=== PATIENT | male | born 1995 | race Two or more races ===

== ENCOUNTER 2020-09-03 17:36 | Inpatient (IN) | payer OTHER ==
[2020-09-03 19:10] VITALS: BMI 21.1
[2020-09-03] MEDS ORDERED: MENTHOL/PHENOL 1 EACH UD MM PRN (19:30)
[2020-09-03] MEDS ORDERED: MAGNESIUM HYDROX 2400MG/30ML ORAL SUSPENSION 30 ML CUP PO PRN (19:30)
[2020-09-03] MEDS ORDERED: MAG HYDROX/AL HYDROX/SIMETH 30 ML UNIT-DOSE CUP PO PRN (19:30)
[2020-09-03] MEDS ORDERED: MAGNESIUM CITRATE 300 ML BOTTLE PO PRN (19:30)
[2020-09-03] MEDS ORDERED: ACETAMINOPHEN 325 MG TABLET (FP) PO PRN ×2 (19:30)
[2020-09-03] MEDS ORDERED: ONDANSETRON *ODT* 4 MG TABLET SL PRN (19:30)
[2020-09-03] MEDS ORDERED: NICOTINE POLACRILEX 2 MG GUM BUC PRN (19:30)
[2020-09-03] MEDS ORDERED: METHADONE HCL 10 MG TABLET (FOR DETOX USE ONLY) PO ONE (19:32)
[2020-09-03] MEDS ORDERED: cloNIDine HCL 0.1 MG TABLET PO PRN (19:32)
[2020-09-03] MEDS: MELATONIN 5 MG TABLETS PO SCH (22:01)
[2020-09-03] MEDS: THIAMINE HCL 100 MG TABLET (FP) PO SCH (22:02)
[2020-09-04] MEDS ORDERED: METHADONE HCL 10 MG TABLET ONE (09:17)
[2020-09-04] MEDS ORDERED: METHADONE HCL 5 MG TABLET ONE (09:18)
[2020-09-04] MEDS ORDERED: METHADONE 10 MG, METHADONE 5 MG PO ONE (10:00)
[2020-09-04] MEDS ORDERED: METHADONE HCL 10 MG TABLET (FOR DETOX USE ONLY) PO ONE (10:00)
[2020-09-04] MEDS: PRENATAL VITAMINS W/ FOLIC ACID TABLET (FP) PO SCH (10:07)
[2020-09-04 11:24] LABS: HEMOGLOBIN 13.9 GM/dL (11.7-16.9); MCH 28.8 pg (25.7-33.7); MCHC 33.2 g/dl (32.0-35.9); MEAN CELL VOLUME 86.7 fl (80-96); MEAN PLT VOLUME 10.8 fl (7.5-11.1); PLATELET COUNT 197 10^3/uL (134-434); RBC 4.84 M/mm3 (4.00-5.60); RDW 14.1 % (11.9-15.9); WHITE BLOOD COUNT 5.6 K/mm3 (4.0-10.0)
[2020-09-04 11:45] LABS: BLOOD UREA NITROGEN 10.8 mg/dL (7-18)
[2020-09-04 11:49] LABS: CREATININE 0.7 mg/dL (0.55-1.3)
[2020-09-04 11:50] LABS: BILIRUBIN,TOTAL 0.2 mg/dL (0.2-1); TOT PROT 6.9 g/dl (6.4-8.2)
[2020-09-04] MEDS: MELATONIN 5 MG TABLETS PO SCH (23:04)
[2020-09-04] MEDS: THIAMINE HCL 100 MG TABLET (FP) PO SCH (23:04)
[2020-09-05] MEDS ORDERED: METHADONE HCL 10 MG TABLET (FOR DETOX USE ONLY) PO ONE (10:00)
[2020-09-05] MEDS: PRENATAL VITAMINS W/ FOLIC ACID TABLET (FP) PO SCH (10:29)
[2020-09-05] MEDS: METHOCARBAMOL 500 MG TABLET PO PRN ×2 (10:29→18:09)
[2020-09-05] MEDS: MELATONIN 5 MG TABLETS PO SCH (22:26)
[2020-09-05] MEDS: THIAMINE HCL 100 MG TABLET (FP) PO SCH (22:26)
[2020-09-06] MEDS ORDERED: METHADONE HCL 5 MG TABLET (FOR DETOX USE ONLY) PO ONE (06:00)
[2020-09-06] MEDS: PRENATAL VITAMINS W/ FOLIC ACID TABLET (FP) PO SCH (11:26)
[2020-09-06 13:19] VITALS: BP 115/67; PULSE 82; TEMP 97.5
== END 2020-09-06 13:06 | disposition other institution (70) | DRG 773 ==
LOC: YASAS 17:36 → Y3N 21:27
PROVIDERS: ADMIT Allergy & Immunology; ATTEND Allergy & Immunology
PROC: HZ2ZZZZ Detoxification Services for Substance Abuse Treatment (ICD-10-PCS; principal; 2020-09-03)
DX: F11.23 Opioid dependence with withdrawal (principal); F12.20 Cannabis dependence, uncomplicated; F17.290 Nicotine dependence, other tobacco product, uncomplicated; Z88.6 Allergy status to analgesic agent
CPT/HCPCS: 36415; 80053; 85027; 86780; C9803; U0003; U0005

== ENCOUNTER 2020-09-24 18:15 | Inpatient (IN) | payer OTHER ==
[2020-09-24 19:22] VITALS: BMI 21.9
[2020-09-24] MEDS ORDERED: IBUPROFEN 400 MG TABLET (FP) PO PRN (20:15)
[2020-09-24] MEDS ORDERED: ACETAMINOPHEN 325 MG TABLET (FP) PO PRN ×2 (20:15)
[2020-09-24] MEDS ORDERED: MENTHOL/PHENOL 1 EACH UD MM PRN (20:15)
[2020-09-24] MEDS ORDERED: BISMUTH SUBSALICYLATE 524 MG/30 ML PO PRN (20:15)
[2020-09-24] MEDS ORDERED: MAG HYDROX/AL HYDROX/SIMETH 30 ML UNIT-DOSE CUP PO PRN (20:15)
[2020-09-24] MEDS ORDERED: methaDONE HCL 10 MG TABLET (FOR DETOX USE ONLY) PO ONE (20:15)
[2020-09-24] MEDS ORDERED: cloNIDine HCL 0.1 MG TABLET PO PRN (20:15)
[2020-09-24] MEDS ORDERED: MAGNESIUM HYDROX 2400MG/30ML ORAL SUSPENSION 30 ML CUP PO PRN (20:15)
[2020-09-24] MEDS ORDERED: ONDANSETRON *ODT* 4 MG TABLET SL PRN (20:15)
[2020-09-24] MEDS ORDERED: MAGNESIUM CITRATE 300 ML BOTTLE PO PRN (20:15)
[2020-09-24] MEDS: THIAMINE HCL 100 MG TABLET (FP) PO SCH (23:46)
[2020-09-24] MEDS: hydrOXYzine PAMOATE 25 MG CAPSULE (FP) PO SCH (23:46)
[2020-09-24] MEDS: MELATONIN 5 MG TABLETS PO SCH (23:51)
[2020-09-25] MEDS: hydrOXYzine PAMOATE 25 MG CAPSULE (FP) PO SCH ×6 (05:31→22:18)
[2020-09-25] MEDS ORDERED: methaDONE HCL 10 MG TABLET (FOR DETOX USE ONLY) ONE (10:03)
[2020-09-25 10:05] LABS: HEMATOCRIT 40.4 % (35.4-49); HEMOGLOBIN 13.9 GM/dL (11.7-16.9); MCH 30.1 pg (25.7-33.7); MCHC 34.3 g/dl (32.0-35.9); MEAN CELL VOLUME 87.7 fl (80-96); PLATELET COUNT 146 10^3/uL (134-434); RDW 14.5 % (11.9-15.9); WHITE BLOOD COUNT 5.3 K/mm3 (4.0-10.0)
[2020-09-25 10:19] LABS: ALBUMIN 3.9 g/dl (3.4-5.0); BLOOD UREA NITROGEN 15.6 mg/dL (7-18)
[2020-09-25 10:21] LABS: CREATININE 0.8 mg/dL (0.55-1.3)
[2020-09-25 10:24] LABS: BILIRUBIN,TOTAL 0.4 mg/dL (0.2-1); CALCIUM 9.2 mg/dL (8.5-10.1); TOT PROT 6.8 g/dl (6.4-8.2)
[2020-09-25] MEDS: PRENATAL VITAMINS W/ FOLIC ACID TABLET (FP) PO SCH (10:34)
[2020-09-25] MEDS: METHOCARBAMOL 500 MG TABLET PO PRN (10:35)
[2020-09-25] MEDS: diazePAM 5 MG TABLET PO PRN ×3 (13:49→23:39)
[2020-09-25] MEDS: NICOTINE POLACRILEX 2 MG GUM BUC PRN (17:12)
[2020-09-25] MEDS: MELATONIN 5 MG TABLETS PO SCH (22:17)
[2020-09-25] MEDS: THIAMINE HCL 100 MG TABLET (FP) PO SCH (22:18)
[2020-09-26] MEDS: diazePAM 5 MG TABLET PO PRN ×5 (04:44→21:39)
[2020-09-26] MEDS: hydrOXYzine PAMOATE 25 MG CAPSULE (FP) PO SCH ×5 (06:01→23:08)
[2020-09-26] MEDS: NICOTINE POLACRILEX 2 MG GUM BUC PRN (07:00)
[2020-09-26] MEDS ORDERED: methaDONE HCL 10 MG TABLET (FOR DETOX USE ONLY) PO ONE (10:00)
[2020-09-26] MEDS: PRENATAL VITAMINS W/ FOLIC ACID TABLET (FP) PO SCH (10:24)
[2020-09-26] MEDS: NICOTINE 10 MG CARTRIDGE (INHALER) IH PRN ×2 (10:24→17:34)
[2020-09-26] MEDS: METHOCARBAMOL 500 MG TABLET PO PRN (11:42)
[2020-09-26] MEDS: MELATONIN 5 MG TABLETS PO SCH (23:07)
[2020-09-26] MEDS: THIAMINE HCL 100 MG TABLET (FP) PO SCH (23:08)
[2020-09-27] MEDS: diazePAM 5 MG TABLET PO PRN ×5 (06:30→22:36)
[2020-09-27] MEDS: hydrOXYzine PAMOATE 25 MG CAPSULE (FP) PO SCH ×5 (06:42→22:33)
[2020-09-27] MEDS: NICOTINE 10 MG CARTRIDGE (INHALER) IH PRN ×4 (08:42→22:38)
[2020-09-27] MEDS ORDERED: methaDONE HCL 10 MG TABLET (FOR DETOX USE ONLY) ONE (09:13)
[2020-09-27] MEDS: PRENATAL VITAMINS W/ FOLIC ACID TABLET (FP) PO SCH (10:34)
[2020-09-27] MEDS: THIAMINE HCL 100 MG TABLET (FP) PO SCH (22:33)
[2020-09-27] MEDS: MELATONIN 5 MG TABLETS PO SCH (22:34)
[2020-09-28] MEDS: NICOTINE 10 MG CARTRIDGE (INHALER) IH PRN ×2 (04:05→09:06)
[2020-09-28 06:53] VITALS: BP 88/48; PULSE 68; TEMP 96.8
[2020-09-28] MEDS: hydrOXYzine PAMOATE 25 MG CAPSULE (FP) PO SCH ×2 (07:15→11:02)
[2020-09-28] MEDS ORDERED: methaDONE HCL 10 MG TABLET (FOR DETOX USE ONLY) PO ONE (10:00)
[2020-09-28] MEDS: PRENATAL VITAMINS W/ FOLIC ACID TABLET (FP) PO SCH (11:02)
== END 2020-09-28 09:22 | disposition home or self-care (01) | DRG 773 ==
LOC: YASAS 18:15 → Y3N 22:58
PROVIDERS: ADMIT Allergy & Immunology; ATTEND Allergy & Immunology
PROC: HZ2ZZZZ Detoxification Services for Substance Abuse Treatment (ICD-10-PCS; principal; 2020-09-24)
DX: F11.23 Opioid dependence with withdrawal (principal); Z87.891 Personal history of nicotine dependence; Z88.6 Allergy status to analgesic agent; Z56.0 Unemployment, unspecified
CPT/HCPCS: 36415; 80053; 85027; 86780; C9803; U0003; U0005

== ENCOUNTER 2021-12-22 09:43 | Inpatient (IN) | payer OTHER ==
[2021-12-22 10:32] VITALS: BMI 21.7
[2021-12-22] MEDS ORDERED: ACETAMINOPHEN 325 MG TABLET (FP) PO PRN ×2 (11:24)
[2021-12-22] MEDS ORDERED: LOPERAMIDE HCL 2 MG CAPSULE PO PRN (11:24)
[2021-12-22] MEDS ORDERED: BISMUTH SUBSALICYLATE 262 MG/15 ML BTL PO PRN (11:24)
[2021-12-22] MEDS ORDERED: IBUPROFEN 600 MG TABLET (FP) PO PRN (11:24)
[2021-12-22] MEDS ORDERED: MAG HYDROX/AL HYDROX/SIMETH 30 ML UNIT-DOSE CUP PO PRN (11:24)
[2021-12-22] MEDS ORDERED: NALOXONE HCL (KLOXXADO) 8 MG SPRAY NS PRN (11:24)
[2021-12-22] MEDS ORDERED: IBUPROFEN 400 MG TABLET (FP) PO PRN (11:24)
[2021-12-22] MEDS ORDERED: DICYCLOMINE HCL 10 MG CAPSULE PO PRN (11:24)
[2021-12-22] MEDS ORDERED: MAGNESIUM CITRATE 300 ML BOTTLE PO PRN (11:24)
[2021-12-22] MEDS ORDERED: ONDANSETRON *ODT* 4 MG TABLET SL PRN (11:24)
[2021-12-22] MEDS ORDERED: MAGNESIUM HYDROX 2400MG/30ML ORAL SUSPENSION 30 ML CUP PO PRN (11:24)
[2021-12-22] MEDS ORDERED: BENZOCAINE/MENTHOL (CHLORASEPTIC ) LOZENGE MM PRN (11:24)
[2021-12-22] MEDS ORDERED: hydrOXYzine PAMOATE 25 MG CAPSULE (FP) PO PRN (11:24)
[2021-12-22 15:18] LABS: HEMATOCRIT 43.6 % (35.4-49); HEMOGLOBIN 14.8 GM/dL (11.7-16.9); MCH 30.4 pg (25.7-33.7); MCHC 33.9 g/dl (32.0-35.9); MEAN CELL VOLUME 89.5 fl (80-96); MEAN PLT VOLUME 10.3 fl (7.5-11.1); PLATELET COUNT 231 10^3/uL (134-434); RBC 4.87 M/mm3 (4.00-5.60); RDW 13.3 % (11.9-15.9); WHITE BLOOD COUNT 5.8 K/mm3 (4.0-10.0)
[2021-12-22 15:25] LABS: CALCIUM 9.3 mg/dL (8.5-10.1)
[2021-12-22 15:26] LABS: ALBUMIN 3.7 g/dl (3.4-5.0); BLOOD UREA NITROGEN 9.9 mg/dL (7-18)
[2021-12-22 15:28] LABS: CREATININE 0.8 mg/dL (0.55-1.3)
[2021-12-22 15:30] LABS: TOT PROT 6.8 g/dl (6.4-8.2)
[2021-12-22 15:31] LABS: BILIRUBIN,TOTAL 0.2 mg/dL (0.2-1)
[2021-12-22] MEDS: MELATONIN 5 MG TABLETS PO SCH (22:23)
[2021-12-22] MEDS: THIAMINE HCL 100 MG TABLET (FP) PO SCH (22:24)
[2021-12-23] MEDS ORDERED: cloNIDine HCL 0.1 MG TABLET PO PRN (09:01)
[2021-12-23] MEDS ORDERED: methaDONE HCL 10 MG TABLET (FOR DETOX USE ONLY) PO ONE (09:15)
[2021-12-23] MEDS: METHOCARBAMOL 500 MG TABLET PO PRN (10:06)
[2021-12-23] MEDS: PRENATAL VITAMINS W/ FOLIC ACID TABLET (FP) PO SCH (10:06)
[2021-12-23] MEDS: diazePAM 5 MG TABLET PO SCH ×3 (10:08→22:40)
[2021-12-23] MEDS: diazePAM 5 MG TABLET PO PRN (19:05)
[2021-12-23] MEDS: MELATONIN 5 MG TABLETS PO SCH (22:40)
[2021-12-23] MEDS: THIAMINE HCL 100 MG TABLET (FP) PO SCH (22:40)
[2021-12-24] MEDS: diazePAM 5 MG TABLET PO PRN ×3 (03:47→18:56)
[2021-12-24] MEDS: diazePAM 5 MG TABLET PO SCH ×4 (06:26→22:22)
[2021-12-24] MEDS: PRENATAL VITAMINS W/ FOLIC ACID TABLET (FP) PO SCH (10:20)
[2021-12-24] MEDS: METHOCARBAMOL 500 MG TABLET PO PRN (10:21)
[2021-12-24] MEDS: NICOTINE 10 MG CARTRIDGE (INHALER) IH PRN ×3 (10:48→21:09)
[2021-12-24] MEDS: THIAMINE HCL 100 MG TABLET (FP) PO SCH (22:21)
[2021-12-24] MEDS: MELATONIN 5 MG TABLETS PO SCH (22:23)
[2021-12-25] MEDS ORDERED: diazePAM 5 MG TABLET PO SCH (06:00)
[2021-12-25] MEDS: NICOTINE 10 MG CARTRIDGE (INHALER) IH PRN ×2 (07:38→10:38)
[2021-12-25] MEDS: diazePAM 5 MG TABLET PO PRN (07:38)
[2021-12-25 09:16] VITALS: BP 105/60; PULSE 75; RESP 16; TEMP 97.5
[2021-12-25] MEDS: METHOCARBAMOL 500 MG TABLET PO PRN (09:59)
[2021-12-25] MEDS: PRENATAL VITAMINS W/ FOLIC ACID TABLET (FP) PO SCH (09:59)
[2021-12-25] MEDS ORDERED: methaDONE HCL 10 MG TABLET (FOR DETOX USE ONLY) PO ONE (10:00)
[2021-12-26] MEDS ORDERED: diazePAM 5 MG TABLET PO SCH (06:00)
[2021-12-27] MEDS ORDERED: diazePAM 5 MG TABLET PO ONE (06:00)
[2021-12-27] MEDS ORDERED: methaDONE HCL 10 MG TABLET (FOR DETOX USE ONLY) PO ONE (10:00)
== END 2021-12-25 11:45 | disposition left against medical advice (07) | DRG 770 ==
LOC: YASAS 09:43 → Y6N 12:05
PROVIDERS: ADMIT Allergy & Immunology; ATTEND Surgery
PROC: HZ2ZZZZ Detoxification Services for Substance Abuse Treatment (ICD-10-PCS; principal; 2021-12-22)
DX: F11.23 Opioid dependence with withdrawal (principal); F10.10 Alcohol abuse, uncomplicated; F12.20 Cannabis dependence, uncomplicated; F17.210 Nicotine dependence, cigarettes, uncomplicated
CPT/HCPCS: 36415; 80053; 85027; 86780; 87811; C9803-CS; U0003; U0005

== ENCOUNTER 2022-01-19 15:53 | Inpatient (IN) | payer OTHER ==
[2022-01-19 18:24] VITALS: BMI 27.4
[2022-01-19] MEDS ORDERED: cloNIDine HCL 0.1 MG TABLET PO PRN (18:56)
[2022-01-19] MEDS ORDERED: BENZOCAINE/MENTHOL (CHLORASEPTIC ) LOZENGE MM PRN (18:56)
[2022-01-19] MEDS ORDERED: METHOCARBAMOL 500 MG TABLET PO PRN (18:56)
[2022-01-19] MEDS ORDERED: ACETAMINOPHEN 325 MG TABLET (FP) PO PRN ×2 (18:56)
[2022-01-19] MEDS ORDERED: LOPERAMIDE HCL 2 MG CAPSULE PO PRN (18:56)
[2022-01-19] MEDS ORDERED: NALOXONE HCL (KLOXXADO) 8 MG SPRAY NS PRN (18:56)
[2022-01-19] MEDS ORDERED: DICYCLOMINE HCL 10 MG CAPSULE PO PRN (18:56)
[2022-01-19] MEDS ORDERED: MAGNESIUM HYDROX 2400MG/30ML ORAL SUSPENSION 30 ML CUP PO PRN (18:56)
[2022-01-19] MEDS ORDERED: methaDONE HCL 10 MG TABLET (FOR DETOX USE ONLY) PO ONE ×2 (18:56→21:15)
[2022-01-19] MEDS ORDERED: POLYETHYLENE GLYCOL (HEALTHYLAX) 3350 17 GM PACKET PO PRN (18:56)
[2022-01-19] MEDS ORDERED: MAG HYDROX/AL HYDROX/SIMETH 30 ML UNIT-DOSE CUP PO PRN (18:56)
[2022-01-19] MEDS: THIAMINE HCL 100 MG TABLET (FP) PO SCH (21:07)
[2022-01-19] MEDS: diazePAM 5 MG TABLET PO PRN (21:07)
[2022-01-19] MEDS: NICOTINE 10 MG CARTRIDGE (INHALER) IH PRN (21:08)
[2022-01-19] MEDS: diazePAM 5 MG TABLET PO SCH (22:47)
[2022-01-19] MEDS: MELATONIN 5 MG TABLETS PO SCH (22:47)
[2022-01-20] MEDS: diazePAM 5 MG TABLET PO PRN ×4 (01:13→20:06)
[2022-01-20] MEDS: NICOTINE 10 MG CARTRIDGE (INHALER) IH PRN ×6 (01:14→18:33)
[2022-01-20] MEDS: diazePAM 5 MG TABLET PO SCH ×4 (05:21→22:37)
[2022-01-20] MEDS: PRENATAL VITAMINS W/ FOLIC ACID TABLET (FP) PO SCH (10:14)
[2022-01-20 12:24] LABS: HEMATOCRIT 42.9 % (35.4-49); HEMOGLOBIN 14.4 GM/dL (11.7-16.9); MCH 29.5 pg (25.7-33.7); MCHC 33.6 g/dl (32.0-35.9); MEAN CELL VOLUME 87.7 fl (80-96); MEAN PLT VOLUME 10.8 fl (7.5-11.1); PLATELET COUNT 185 10^3/uL (134-434); RBC 4.89 M/mm3 (4.00-5.60); RDW 13.2 % (11.9-15.9); WHITE BLOOD COUNT 7.1 K/mm3 (4.0-10.0)
[2022-01-20 12:41] LABS: ALBUMIN 3.6 g/dl (3.4-5.0); CALCIUM 8.9 mg/dL (8.5-10.1)
[2022-01-20 12:45] LABS: BILIRUBIN,TOTAL 0.5 mg/dL (0.2-1); BLOOD UREA NITROGEN 11.8 mg/dL (7-18); TOT PROT 6.6 g/dl (6.4-8.2)
[2022-01-20 12:47] LABS: CREATININE 0.9 mg/dL (0.55-1.3)
[2022-01-20] MEDS: THIAMINE HCL 100 MG TABLET (FP) PO SCH (22:38)
[2022-01-20] MEDS: MELATONIN 5 MG TABLETS PO SCH (22:39)
[2022-01-21] MEDS: diazePAM 5 MG TABLET PO SCH ×3 (05:17→22:30)
[2022-01-21] MEDS: NICOTINE 10 MG CARTRIDGE (INHALER) IH PRN ×5 (05:18→20:21)
[2022-01-21] MEDS: diazePAM 5 MG TABLET PO PRN ×4 (08:53→20:25)
[2022-01-21] MEDS: PRENATAL VITAMINS W/ FOLIC ACID TABLET (FP) PO SCH (09:37)
[2022-01-21] MEDS ORDERED: methaDONE HCL 10 MG TABLET (FOR DETOX USE ONLY) PO ONE (10:00)
[2022-01-21] MEDS: THIAMINE HCL 100 MG TABLET (FP) PO SCH (22:30)
[2022-01-21] MEDS: MELATONIN 5 MG TABLETS PO SCH (22:31)
[2022-01-22] MEDS: diazePAM 5 MG TABLET PO PRN ×3 (01:43→12:35)
[2022-01-22] MEDS: NICOTINE 10 MG CARTRIDGE (INHALER) IH PRN ×4 (01:45→13:42)
[2022-01-22] MEDS ORDERED: diazePAM 5 MG TABLET PO SCH (06:00)
[2022-01-22 09:24] VITALS: RESP 17; TEMP 96.9
[2022-01-22] MEDS: PRENATAL VITAMINS W/ FOLIC ACID TABLET (FP) PO SCH (10:26)
[2022-01-22 14:07] VITALS: BP 114/74; PULSE 93
[2022-01-23] MEDS ORDERED: diazePAM 5 MG TABLET PO ONE (06:00)
[2022-01-23] MEDS ORDERED: methaDONE HCL 10 MG TABLET (FOR DETOX USE ONLY) PO ONE (10:00)
== END 2022-01-22 15:08 | disposition left against medical advice (07) | DRG 770 ==
LOC: YASAS 15:53 → Y6N 19:44
PROVIDERS: ADMIT Allergy & Immunology; ATTEND Surgery
PROC: HZ2ZZZZ Detoxification Services for Substance Abuse Treatment (ICD-10-PCS; principal; 2022-01-19)
DX: F11.23 Opioid dependence with withdrawal (principal); F10.230 Alcohol dependence with withdrawal, uncomplicated; F17.210 Nicotine dependence, cigarettes, uncomplicated; Z28.310 Unvaccinated for COVID-19; Z28.9 Immunization not carried out for unspecified reason
CPT/HCPCS: 36415; 80053; 85027; 86780; C9803-CS; U0003; U0005

== ENCOUNTER 2022-03-27 21:09 | Inpatient (IN) | payer OTHER ==
[2022-03-27 21:45] VITALS: BMI 21.8
[2022-03-27] MEDS ORDERED: MAG HYDROX/AL HYDROX/SIMETH 30 ML UNIT-DOSE CUP PO PRN (22:22)
[2022-03-27] MEDS ORDERED: NALOXONE HCL (KLOXXADO) 8 MG SPRAY NS PRN (22:22)
[2022-03-27] MEDS ORDERED: MAGNESIUM HYDROX 2400MG/30ML ORAL SUSPENSION 30 ML CUP PO PRN (22:22)
[2022-03-27] MEDS ORDERED: ACETAMINOPHEN 325 MG TABLET (FP) PO PRN (22:22)
[2022-03-27] MEDS ORDERED: LOPERAMIDE HCL 2 MG CAPSULE PO PRN (22:22)
[2022-03-27] MEDS ORDERED: POLYETHYLENE GLYCOL (HEALTHYLAX) 3350 17 GM PACKET PO PRN (22:22)
[2022-03-27] MEDS ORDERED: BISMUTH SUBSALICYLATE 524 MG/30 ML PO PRN (22:22)
[2022-03-27] MEDS ORDERED: DICYCLOMINE HCL 10 MG CAPSULE PO PRN (22:22)
[2022-03-27] MEDS ORDERED: BENZOCAINE/MENTHOL (CHLORASEPTIC ) LOZENGE MM PRN (22:22)
[2022-03-27] MEDS ORDERED: ONDANSETRON *ODT* 4 MG TABLET SL PRN (22:22)
[2022-03-27] MEDS ORDERED: cloNIDine HCL 0.1 MG TABLET PO PRN (22:22)
[2022-03-27] MEDS ORDERED: METHOCARBAMOL 500 MG TABLET PO PRN (22:22)
[2022-03-27] MEDS: NICOTINE 10 MG CARTRIDGE (INHALER) IH PRN (23:24)
[2022-03-27] MEDS: diazePAM 5 MG TABLET PO PRN (23:35)
[2022-03-27] MEDS: ACETAMINOPHEN 325 MG TABLET (FP) PO PRN (23:36)
[2022-03-27] MEDS ORDERED: methaDONE HCL 10 MG TABLET (FOR DETOX USE ONLY) PO ONE (23:45)
[2022-03-28] MEDS: NICOTINE 10 MG CARTRIDGE (INHALER) IH PRN ×5 (03:33→22:26)
[2022-03-28] MEDS: PRENATAL VITAMINS W/ FOLIC ACID TABLET (FP) PO SCH (10:57)
[2022-03-28] MEDS: NICOTINE 14 MG/24 HOURS TOPICAL PATCH TD SCH (10:58)
[2022-03-28] MEDS: diazePAM 5 MG TABLET PO PRN ×3 (11:02→23:44)
[2022-03-28 11:08] LABS: HEMATOCRIT 39.1 % (35.4-49); HEMOGLOBIN 13.1 GM/dL (11.7-16.9); MCH 29.2 pg (25.7-33.7); MCHC 33.5 g/dl (32.0-35.9); MEAN CELL VOLUME 87.2 fl (80-96); MEAN PLT VOLUME 10.8 fl (7.5-11.1); PLATELET COUNT 175 10^3/uL (134-434); RBC 4.48 M/mm3 (4.00-5.60); RDW 13.9 % (11.9-15.9); WHITE BLOOD COUNT 7.5 K/mm3 (4.0-10.0)
[2022-03-28 11:16] LABS: CALCIUM 8.8 mg/dL (8.5-10.1)
[2022-03-28 11:18] LABS: ALBUMIN 3.5 g/dl (3.4-5.0); BLOOD UREA NITROGEN 14.2 mg/dL (7-18)
[2022-03-28 11:19] LABS: CREATININE 0.9 mg/dL (0.55-1.3)
[2022-03-28 11:20] LABS: BILIRUBIN,TOTAL 0.2 mg/dL (0.2-1); TOT PROT 6.2 g/dl (6.4-8.2)
[2022-03-28] MEDS: ACETAMINOPHEN 325 MG TABLET (FP) PO PRN (18:34)
[2022-03-28] MEDS: THIAMINE HCL 100 MG TABLET (FP) PO SCH (22:25)
[2022-03-28] MEDS: MELATONIN 5 MG TABLETS PO SCH (22:25)
[2022-03-29] MEDS: NICOTINE 10 MG CARTRIDGE (INHALER) IH PRN ×3 (07:23→21:08)
[2022-03-29] MEDS: diazePAM 5 MG TABLET PO PRN ×3 (08:26→20:27)
[2022-03-29] MEDS ORDERED: methaDONE HCL 10 MG TABLET (FOR DETOX USE ONLY) PO ONE (10:00)
[2022-03-29] MEDS: NICOTINE 14 MG/24 HOURS TOPICAL PATCH TD SCH (10:12)
[2022-03-29] MEDS: PRENATAL VITAMINS W/ FOLIC ACID TABLET (FP) PO SCH (10:15)
[2022-03-29] MEDS: ACETAMINOPHEN 325 MG TABLET (FP) PO PRN (16:19)
[2022-03-29] MEDS: MELATONIN 5 MG TABLETS PO SCH (23:05)
[2022-03-29] MEDS: THIAMINE HCL 100 MG TABLET (FP) PO SCH (23:06)
[2022-03-29] MEDS: CHLORHEXIDINE GLUCONATE 0.12% 15ML CUP MM SCH (23:06)
[2022-03-30] MEDS: NICOTINE 10 MG CARTRIDGE (INHALER) IH PRN ×4 (02:12→19:38)
[2022-03-30] MEDS: diazePAM 5 MG TABLET PO PRN ×4 (03:28→21:20)
[2022-03-30] MEDS: PRENATAL VITAMINS W/ FOLIC ACID TABLET (FP) PO SCH (09:39)
[2022-03-30] MEDS: NICOTINE 14 MG/24 HOURS TOPICAL PATCH TD SCH (09:42)
[2022-03-30] MEDS: CHLORHEXIDINE GLUCONATE 0.12% 15ML CUP MM SCH ×2 (09:42→23:20)
[2022-03-30] MEDS: MELATONIN 5 MG TABLETS PO SCH (23:19)
[2022-03-30] MEDS: THIAMINE HCL 100 MG TABLET (FP) PO SCH (23:20)
[2022-03-31] MEDS: NICOTINE 10 MG CARTRIDGE (INHALER) IH PRN ×4 (05:58→22:15)
[2022-03-31] MEDS ORDERED: AMOXICILLIN 500 MG CAPSULE (FP) PO ONE (09:51)
[2022-03-31] MEDS ORDERED: AMOXICILLIN 500 MG CAPSULE (FP) PO SCH (10:00)
[2022-03-31] MEDS ORDERED: methaDONE HCL 10 MG TABLET (FOR DETOX USE ONLY) PO ONE (10:00)
[2022-03-31] MEDS: NICOTINE 14 MG/24 HOURS TOPICAL PATCH TD SCH (10:39)
[2022-03-31] MEDS: PRENATAL VITAMINS W/ FOLIC ACID TABLET (FP) PO SCH (10:40)
[2022-03-31] MEDS: CHLORHEXIDINE GLUCONATE 0.12% 15ML CUP MM SCH ×2 (10:40→22:32)
[2022-03-31] MEDS: AMOXICILLIN 500 MG CAPSULE (FP) PO SCH ×2 (14:09→22:14)
[2022-03-31] MEDS: THIAMINE HCL 100 MG TABLET (FP) PO SCH (22:15)
[2022-03-31] MEDS: MELATONIN 5 MG TABLETS PO SCH (22:15)
[2022-04-01 06:08] VITALS: BP 108/62
[2022-04-01] MEDS: NICOTINE 10 MG CARTRIDGE (INHALER) IH PRN (06:54)
[2022-04-01] MEDS: AMOXICILLIN 500 MG CAPSULE (FP) PO SCH (06:54)
[2022-04-01 09:57] VITALS: PULSE 96; RESP 16; TEMP 96.4
== END 2022-04-01 10:02 | disposition home or self-care (01) | DRG 773 ==
LOC: YASAS 21:09 → Y6N 23:03 → Y3N 03-31 18:09
PROVIDERS: ADMIT Allergy & Immunology; ATTEND Family Medicine
PROC: HZ2ZZZZ Detoxification Services for Substance Abuse Treatment (ICD-10-PCS; principal; 2022-03-27)
DX: F11.23 Opioid dependence with withdrawal (principal); F10.230 Alcohol dependence with withdrawal, uncomplicated; F17.210 Nicotine dependence, cigarettes, uncomplicated; Z28.310 Unvaccinated for COVID-19; Z28.9 Immunization not carried out for unspecified reason
CPT/HCPCS: 36415; 80053; 85027; 86780; C9803-CS; U0003; U0005

== ENCOUNTER 2022-04-30 17:30 | Inpatient (IN) | payer OTHER ==
[2022-04-30 18:05] VITALS: BMI 21.2
[2022-04-30] MEDS ORDERED: P-EPHED 60MG/TRIPROLIDI 2.5MG TABLET PO PRN (19:02)
[2022-04-30] MEDS ORDERED: hydrOXYzine PAMOATE 25 MG CAPSULE (FP) PO PRN (19:02)
[2022-04-30] MEDS ORDERED: POLYETHYLENE GLYCOL (HEALTHYLAX) 3350 17 GM PACKET PO PRN (19:02)
[2022-04-30] MEDS ORDERED: BENZOCAINE/MENTHOL (CHLORASEPTIC ) LOZENGE MM PRN (19:02)
[2022-04-30] MEDS ORDERED: MELATONIN 5 MG TABLETS PO PRN (19:02)
[2022-04-30] MEDS ORDERED: MAG HYDROX/AL HYDROX/SIMETH 30 ML UNIT-DOSE CUP PO PRN (19:02)
[2022-04-30] MEDS ORDERED: DICYCLOMINE HCL 10 MG CAPSULE PO PRN (19:02)
[2022-04-30] MEDS ORDERED: MAGNESIUM HYDROX 2400MG/30ML ORAL SUSPENSION 30 ML CUP PO PRN (19:02)
[2022-04-30] MEDS ORDERED: NALOXONE HCL 0.4 MG/ML VIAL IM PRN (19:02)
[2022-04-30] MEDS ORDERED: ACETAMINOPHEN 325 MG TABLET (FP) PO PRN (19:02)
[2022-04-30] MEDS ORDERED: LOPERAMIDE HCL 2 MG CAPSULE PO PRN (19:02)
[2022-04-30] MEDS ORDERED: NALOXONE HCL (KLOXXADO) 8 MG SPRAY NS PRN (19:02)
[2022-04-30] MEDS ORDERED: guaiFENesin 200 MG/10 ML 10 ML UNIT-DOSE CUPS PO PRN (19:02)
[2022-04-30] MEDS ORDERED: ONDANSETRON *ODT* 4 MG TABLET SL PRN (19:02)
[2022-04-30] MEDS ORDERED: METHOCARBAMOL 500 MG TABLET PO PRN (19:02)
[2022-04-30] MEDS ORDERED: methaDONE HCL 10 MG TABLET (FOR DETOX USE ONLY) PO ONE (19:08)
[2022-04-30] MEDS ORDERED: cloNIDine HCL 0.1 MG TABLET PO PRN (19:08)
[2022-04-30] MEDS: ACETAMINOPHEN 325 MG TABLET (FP) PO PRN (19:45)
[2022-04-30] MEDS: diazePAM 5 MG TABLET PO PRN (19:50)
[2022-04-30] MEDS: NICOTINE 10 MG CARTRIDGE (INHALER) IH PRN (19:51)
[2022-04-30] MEDS: diazePAM 5 MG TABLET PO SCH (23:07)
[2022-04-30] MEDS: THIAMINE HCL 100 MG TABLET (FP) PO SCH (23:07)
[2022-05-01] MEDS: diazePAM 5 MG TABLET PO SCH ×4 (06:00→23:13)
[2022-05-01] MEDS: PRENATAL VITAMINS W/ FOLIC ACID TABLET (FP) PO SCH (10:04)
[2022-05-01] MEDS: ACETAMINOPHEN 325 MG TABLET (FP) PO PRN (10:07)
[2022-05-01] MEDS: NICOTINE 10 MG CARTRIDGE (INHALER) IH PRN ×3 (10:10→20:04)
[2022-05-01 11:16] LABS: HEMOGLOBIN 14.1 GM/dL (11.7-16.9); MCH 28.5 pg (25.7-33.7); MCHC 33.7 g/dl (32.0-35.9); MEAN CELL VOLUME 84.7 fl (80-96); MEAN PLT VOLUME 9.9 fl (7.5-11.1); PLATELET COUNT 240 10^3/uL (134-434); RBC 4.95 M/mm3 (4.00-5.60); RDW 14.7 % (11.9-15.9); WHITE BLOOD COUNT 7.8 K/mm3 (4.0-10.0)
[2022-05-01 11:28] LABS: ALBUMIN 3.5 g/dl (3.4-5.0); CALCIUM 9.4 mg/dL (8.5-10.1)
[2022-05-01 11:31] LABS: CREATININE 0.8 mg/dL (0.55-1.3)
[2022-05-01 11:32] LABS: BILIRUBIN,TOTAL 0.6 mg/dL (0.2-1)
[2022-05-01 11:33] LABS: TOT PROT 6.8 g/dl (6.4-8.2)
[2022-05-01] MEDS: diazePAM 5 MG TABLET PO PRN ×2 (14:54→20:00)
[2022-05-01] MEDS: THIAMINE HCL 100 MG TABLET (FP) PO SCH ×2 (23:12→23:13)
[2022-05-02] MEDS: diazePAM 5 MG TABLET PO PRN ×5 (02:34→20:31)
[2022-05-02] MEDS: NICOTINE 10 MG CARTRIDGE (INHALER) IH PRN ×4 (02:55→20:33)
[2022-05-02] MEDS: diazePAM 5 MG TABLET PO SCH ×3 (05:31→22:44)
[2022-05-02] MEDS ORDERED: methaDONE HCL 10 MG TABLET (FOR DETOX USE ONLY) PO ONE (10:00)
[2022-05-02] MEDS: PRENATAL VITAMINS W/ FOLIC ACID TABLET (FP) PO SCH (10:09)
[2022-05-02] MEDS: THIAMINE HCL 100 MG TABLET (FP) PO SCH (22:44)
[2022-05-03] MEDS: NICOTINE 10 MG CARTRIDGE (INHALER) IH PRN ×2 (05:11→10:28)
[2022-05-03] MEDS ORDERED: diazePAM 5 MG TABLET PO SCH (06:00)
[2022-05-03] MEDS: diazePAM 5 MG TABLET PO PRN ×2 (07:33→12:16)
[2022-05-03 08:52] VITALS: RESP 18; TEMP 97.7
[2022-05-03] MEDS: PRENATAL VITAMINS W/ FOLIC ACID TABLET (FP) PO SCH (10:27)
[2022-05-03 13:05] VITALS: BP 118/82; PULSE 100
[2022-05-04] MEDS ORDERED: diazePAM 5 MG TABLET PO ONE (06:00)
[2022-05-04] MEDS ORDERED: methaDONE HCL 10 MG TABLET (FOR DETOX USE ONLY) PO ONE (10:00)
== END 2022-05-03 15:07 | disposition left against medical advice (07) | DRG 770 ==
LOC: YASAS 17:30 → Y3N 18:43
PROVIDERS: ADMIT Allergy & Immunology; ATTEND Surgery
PROC: HZ2ZZZZ Detoxification Services for Substance Abuse Treatment (ICD-10-PCS; principal; 2022-04-30)
DX: F11.23 Opioid dependence with withdrawal (principal); F10.230 Alcohol dependence with withdrawal, uncomplicated; F13.20 Sedative, hypnotic or anxiolytic dependence, uncomplicated; F14.20 Cocaine dependence, uncomplicated; F17.210 Nicotine dependence, cigarettes, uncomplicated; Z28.310 Unvaccinated for COVID-19; Z28.9 Immunization not carried out for unspecified reason; Z88.8 Allergy status to other drugs, medicaments and biological substances
CPT/HCPCS: 36415; 80053; 85027; 86780; 87811; 93005; 93010; C9803-CS; U0003; U0005

== ENCOUNTER 2022-05-31 13:48 | Inpatient (IN) | payer OTHER ==
[2022-05-31] MEDS ORDERED: TRIMETHOBENZAMIDE HCL 200MG/2ML INJ IM ONE ×2 (14:57→15:15)
[2022-05-31 15:03] VITALS: BMI 20.7
[2022-05-31] MEDS ORDERED: BENZONATATE 200 MG CAPSULE PO PRN (15:35)
[2022-05-31] MEDS ORDERED: POLYETHYLENE GLYCOL (HEALTHYLAX) 3350 17 GM PACKET PO PRN (15:35)
[2022-05-31] MEDS ORDERED: BISMUTH SUBSALICYLATE 524 MG/30 ML PO PRN (15:35)
[2022-05-31] MEDS ORDERED: LOPERAMIDE HCL 2 MG CAPSULE PO PRN (15:35)
[2022-05-31] MEDS ORDERED: NICOTINE POLACRILEX 2 MG GUM BUC PRN (15:35)
[2022-05-31] MEDS ORDERED: NALOXONE HCL (KLOXXADO) 8 MG SPRAY NS PRN (15:35)
[2022-05-31] MEDS ORDERED: BENZOCAINE/MENTHOL (CHLORASEPTIC ) LOZENGE MM PRN (15:35)
[2022-05-31] MEDS ORDERED: cloNIDine HCL 0.1 MG TABLET PO PRN (15:35)
[2022-05-31] MEDS ORDERED: guaiFENesin 600 MG TABLET.ER (FP) PO PRN (15:35)
[2022-05-31] MEDS ORDERED: methaDONE HCL 10 MG TABLET (FOR DETOX USE ONLY) PO ONE (15:35)
[2022-05-31] MEDS ORDERED: MAGNESIUM HYDROX 2400MG/30ML ORAL SUSPENSION 30 ML CUP PO PRN (15:35)
[2022-05-31] MEDS ORDERED: MAG HYDROX/AL HYDROX/SIMETH 30 ML UNIT-DOSE CUP PO PRN (15:35)
[2022-05-31] MEDS ORDERED: NALOXONE HCL 0.4 MG/ML VIAL IM PRN (15:35)
[2022-05-31] MEDS ORDERED: DICYCLOMINE HCL 10 MG CAPSULE PO PRN (15:35)
[2022-05-31] MEDS ORDERED: methaDONE HCL 10 MG TABLET (FOR DETOX USE ONLY) ONE (16:09)
[2022-05-31] MEDS ORDERED: diazePAM 5 MG TABLET ONE (17:00)
[2022-05-31] MEDS: diazePAM 5 MG TABLET PO SCH ×2 (17:05→22:25)
[2022-05-31] MEDS: NICOTINE 10 MG CARTRIDGE (INHALER) IH PRN ×2 (17:29→22:26)
[2022-05-31] MEDS: MELATONIN 5 MG TABLETS PO SCH (22:24)
[2022-05-31] MEDS: THIAMINE HCL 100 MG TABLET (FP) PO SCH (22:26)
[2022-06-01] MEDS: diazePAM 5 MG TABLET PO PRN ×4 (03:35→19:17)
[2022-06-01] MEDS: diazePAM 5 MG TABLET PO SCH ×4 (05:49→22:24)
[2022-06-01] MEDS: PRENATAL VITAMINS W/ FOLIC ACID TABLET (FP) PO SCH (10:28)
[2022-06-01 11:24] LABS: ALBUMIN 3.8 g/dl (3.4-5.0); BLOOD UREA NITROGEN 13.2 mg/dL (7-18); CALCIUM 9.6 mg/dL (8.5-10.1)
[2022-06-01 11:27] LABS: CREATININE 0.8 mg/dL (0.55-1.3); HEMATOCRIT 43.1 % (35.4-49); HEMOGLOBIN 14.9 GM/dL (11.7-16.9); MCH 29.5 pg (25.7-33.7); MCHC 34.5 g/dl (32.0-35.9); MEAN CELL VOLUME 85.4 fl (80-96); MEAN PLT VOLUME 10.2 fl (7.5-11.1); PLATELET COUNT 183 10^3/uL (134-434); RBC 5.05 M/mm3 (4.00-5.60); RDW 14.7 % (11.9-15.9); WHITE BLOOD COUNT 9.2 K/mm3 (4.0-10.0)
[2022-06-01 11:28] LABS: BILIRUBIN,TOTAL 0.6 mg/dL (0.2-1)
[2022-06-01] MEDS: NICOTINE 10 MG CARTRIDGE (INHALER) IH PRN ×4 (12:38→23:19)
[2022-06-01] MEDS: MELATONIN 5 MG TABLETS PO SCH (22:24)
[2022-06-01] MEDS: THIAMINE HCL 100 MG TABLET (FP) PO SCH (22:25)
[2022-06-02] MEDS: diazePAM 5 MG TABLET PO PRN ×4 (01:39→17:15)
[2022-06-02] MEDS: NICOTINE 10 MG CARTRIDGE (INHALER) IH PRN ×5 (05:53→21:15)
[2022-06-02] MEDS: diazePAM 5 MG TABLET PO SCH ×3 (05:53→21:26)
[2022-06-02] MEDS ORDERED: methaDONE HCL 10 MG TABLET (FOR DETOX USE ONLY) PO ONE (10:00)
[2022-06-02] MEDS: METHOCARBAMOL 500 MG TABLET PO PRN (10:06)
[2022-06-02] MEDS: PRENATAL VITAMINS W/ FOLIC ACID TABLET (FP) PO SCH (10:06)
[2022-06-02] MEDS: THIAMINE HCL 100 MG TABLET (FP) PO SCH (21:25)
[2022-06-02] MEDS: MELATONIN 5 MG TABLETS PO SCH (22:49)
[2022-06-03] MEDS: diazePAM 5 MG TABLET PO PRN ×3 (00:59→12:28)
[2022-06-03] MEDS: NICOTINE 10 MG CARTRIDGE (INHALER) IH PRN ×3 (01:10→16:52)
[2022-06-03] MEDS: diazePAM 5 MG TABLET PO SCH ×2 (05:27→18:09)
[2022-06-03] MEDS: PRENATAL VITAMINS W/ FOLIC ACID TABLET (FP) PO SCH (10:17)
[2022-06-03] MEDS: ONDANSETRON *ODT* 4 MG TABLET SL PRN (16:32)
[2022-06-03] MEDS: ACETAMINOPHEN 325 MG TABLET (FP) PO PRN ×2 (16:51→23:13)
[2022-06-03] MEDS ORDERED: AMITRIPTYLINE HCL 10 MG TABLET PO ONE (18:35)
[2022-06-03] MEDS ORDERED: ACETAMINOPHEN 325 MG TABLET (FP) PO ONE (19:20)
[2022-06-03] MEDS: THIAMINE HCL 100 MG TABLET (FP) PO SCH (22:59)
[2022-06-03] MEDS: MELATONIN 5 MG TABLETS PO SCH (22:59)
[2022-06-04] MEDS ORDERED: diazePAM 5 MG TABLET PO ONE (06:00)
[2022-06-04] MEDS ORDERED: methaDONE HCL 10 MG TABLET (FOR DETOX USE ONLY) PO ONE (10:00)
[2022-06-04] MEDS: PRENATAL VITAMINS W/ FOLIC ACID TABLET (FP) PO SCH (10:06)
[2022-06-04] MEDS: NICOTINE 10 MG CARTRIDGE (INHALER) IH PRN ×4 (11:44→23:59)
[2022-06-04] MEDS: ONDANSETRON *ODT* 4 MG TABLET SL PRN (12:40)
[2022-06-04] MEDS: MELATONIN 5 MG TABLETS PO SCH (22:53)
[2022-06-04] MEDS: THIAMINE HCL 100 MG TABLET (FP) PO SCH (22:53)
[2022-06-05] MEDS: METHOCARBAMOL 500 MG TABLET PO PRN (00:03)
[2022-06-05] MEDS: NICOTINE 10 MG CARTRIDGE (INHALER) IH PRN (05:53)
[2022-06-05 08:50] VITALS: BP 118/67; PULSE 64; RESP 17; TEMP 97.3
[2022-06-05] MEDS: PRENATAL VITAMINS W/ FOLIC ACID TABLET (FP) PO SCH (09:16)
== END 2022-06-05 08:53 | disposition home or self-care (01) | DRG 773 ==
LOC: YASAS 13:48 → Y3N 16:45
PROVIDERS: ADMIT Allergy & Immunology; ATTEND Surgery
PROC: HZ2ZZZZ Detoxification Services for Substance Abuse Treatment (ICD-10-PCS; principal; 2022-05-31)
DX: F11.23 Opioid dependence with withdrawal (principal); F10.230 Alcohol dependence with withdrawal, uncomplicated; F17.210 Nicotine dependence, cigarettes, uncomplicated; R51.9 Headache, unspecified; R11.0 Nausea; Z28.310 Unvaccinated for COVID-19; Z28.9 Immunization not carried out for unspecified reason; Z59.00 Homelessness unspecified; Z88.8 Allergy status to other drugs, medicaments and biological substances
CPT/HCPCS: 36415; 80053; 85027; 86780; C9803-CS; Q0162; U0003; U0005

== ENCOUNTER 2022-07-08 19:54 | Inpatient (IN) | payer OTHER ==
[2022-07-08 21:34] VITALS: BMI 23.5
[2022-07-08] MEDS ORDERED: ACETAMINOPHEN 325 MG TABLET (FP) PO PRN (23:37)
[2022-07-08] MEDS ORDERED: POLYETHYLENE GLYCOL (HEALTHYLAX) 3350 17 GM PACKET PO PRN (23:37)
[2022-07-08] MEDS ORDERED: NALOXONE HCL 0.4 MG/ML VIAL IM PRN (23:37)
[2022-07-08] MEDS ORDERED: NICOTINE 10 MG CARTRIDGE (INHALER) IH PRN (23:37)
[2022-07-08] MEDS ORDERED: NALOXONE HCL (KLOXXADO) 8 MG SPRAY NS PRN (23:37)
[2022-07-08] MEDS ORDERED: DICYCLOMINE HCL 10 MG CAPSULE PO PRN (23:37)
[2022-07-08] MEDS ORDERED: IBUPROFEN 400 MG TABLET (FP) PO PRN (23:37)
[2022-07-08] MEDS ORDERED: BISMUTH SUBSALICYLATE 524 MG/30 ML PO PRN (23:37)
[2022-07-08] MEDS ORDERED: METHOCARBAMOL 500 MG TABLET PO PRN (23:37)
[2022-07-08] MEDS ORDERED: MAG HYDROX/AL HYDROX/SIMETH 30 ML UNIT-DOSE CUP PO PRN (23:37)
[2022-07-08] MEDS ORDERED: BENZONATATE 200 MG CAPSULE PO PRN (23:37)
[2022-07-08] MEDS ORDERED: IBUPROFEN 600 MG TABLET (FP) PO PRN (23:37)
[2022-07-08] MEDS ORDERED: ONDANSETRON *ODT* 4 MG TABLET SL PRN (23:37)
[2022-07-08] MEDS ORDERED: LOPERAMIDE HCL 2 MG CAPSULE PO PRN (23:37)
[2022-07-08] MEDS ORDERED: MAGNESIUM HYDROX 2400MG/30ML ORAL SUSPENSION 30 ML CUP PO PRN (23:37)
[2022-07-08] MEDS ORDERED: guaiFENesin 600 MG TABLET.ER (FP) PO PRN (23:37)
[2022-07-08] MEDS ORDERED: BENZOCAINE/MENTHOL (CHLORASEPTIC ) LOZENGE MM PRN (23:37)
[2022-07-08] MEDS ORDERED: methaDONE HCL 10 MG TABLET (FOR DETOX USE ONLY) PO ONE (23:48)
[2022-07-08] MEDS ORDERED: cloNIDine HCL 0.1 MG TABLET PO PRN (23:48)
[2022-07-09] MEDS: PRENATAL VITAMINS W/ FOLIC ACID TABLET (FP) PO SCH (10:14)
[2022-07-09] MEDS: levETIRAcetam 500 MG TABLET (FP) PO SCH ×2 (10:14→22:48)
[2022-07-09] MEDS: NICOTINE 14 MG/24 HOURS TOPICAL PATCH TD SCH (10:16)
[2022-07-09 11:00] LABS: HEMATOCRIT 39.6 % (35.4-49); HEMOGLOBIN 13.7 GM/dL (11.7-16.9); MCH 29.5 pg (25.7-33.7); MCHC 34.5 g/dl (32.0-35.9); MEAN CELL VOLUME 85.5 fl (80-96); MEAN PLT VOLUME 10.5 fl (7.5-11.1); PLATELET COUNT 217 10^3/uL (134-434); RBC 4.64 M/mm3 (4.00-5.60); RDW 13.6 % (11.9-15.9); WHITE BLOOD COUNT 7.1 K/mm3 (4.0-10.0)
[2022-07-09 11:07] LABS: POTASSIUM 4.7 mmol/L (3.5-5.1)
[2022-07-09 11:15] LABS: BLOOD UREA NITROGEN 11.8 mg/dL (7-18); CALCIUM 8.8 mg/dL (8.5-10.1)
[2022-07-09 11:16] LABS: ALBUMIN 3.4 g/dl (3.4-5.0)
[2022-07-09 11:17] LABS: CREATININE 0.8 mg/dL (0.55-1.3)
[2022-07-09 11:19] LABS: BILIRUBIN,TOTAL 0.3 mg/dL (0.2-1); TOT PROT 6.5 g/dl (6.4-8.2)
[2022-07-09] MEDS: THIAMINE HCL 100 MG TABLET (FP) PO SCH (22:48)
[2022-07-09] MEDS: MELATONIN 5 MG TABLETS PO SCH (22:48)
[2022-07-10] MEDS ORDERED: methaDONE HCL 10 MG TABLET (FOR DETOX USE ONLY) PO ONE (10:00)
[2022-07-10] MEDS: levETIRAcetam 500 MG TABLET (FP) PO SCH ×2 (10:19→22:29)
[2022-07-10] MEDS: PRENATAL VITAMINS W/ FOLIC ACID TABLET (FP) PO SCH (10:19)
[2022-07-10] MEDS: NICOTINE 14 MG/24 HOURS TOPICAL PATCH TD SCH (10:27)
[2022-07-10] MEDS: NICOTINE POLACRILEX 2 MG GUM BUC PRN (20:05)
[2022-07-10] MEDS: THIAMINE HCL 100 MG TABLET (FP) PO SCH (22:29)
[2022-07-10] MEDS: MELATONIN 5 MG TABLETS PO SCH (22:29)
[2022-07-11] MEDS: PRENATAL VITAMINS W/ FOLIC ACID TABLET (FP) PO SCH (10:13)
[2022-07-11] MEDS: NICOTINE 14 MG/24 HOURS TOPICAL PATCH TD SCH (10:15)
[2022-07-11] MEDS: levETIRAcetam 500 MG TABLET (FP) PO SCH ×2 (10:15→23:04)
[2022-07-11] MEDS: diazePAM 5 MG TABLET PO PRN ×2 (11:27→19:31)
[2022-07-11] MEDS: NICOTINE POLACRILEX 2 MG GUM BUC PRN ×3 (11:50→19:33)
[2022-07-11] MEDS: THIAMINE HCL 100 MG TABLET (FP) PO SCH (23:04)
[2022-07-11] MEDS: MELATONIN 5 MG TABLETS PO SCH (23:04)
[2022-07-12] MEDS: NICOTINE POLACRILEX 2 MG GUM BUC PRN ×2 (01:58→13:51)
[2022-07-12] MEDS: diazePAM 5 MG TABLET PO PRN ×2 (05:48→13:48)
[2022-07-12 09:12] VITALS: RESP 18
[2022-07-12] MEDS ORDERED: methaDONE HCL 10 MG TABLET (FOR DETOX USE ONLY) PO ONE (10:00)
[2022-07-12] MEDS: NICOTINE 14 MG/24 HOURS TOPICAL PATCH TD SCH (10:19)
[2022-07-12] MEDS: levETIRAcetam 500 MG TABLET (FP) PO SCH (10:19)
[2022-07-12] MEDS: PRENATAL VITAMINS W/ FOLIC ACID TABLET (FP) PO SCH (10:20)
[2022-07-12 13:06] VITALS: BP 144/78; PULSE 75; TEMP 98.1
== END 2022-07-12 14:39 | disposition home or self-care (01) | DRG 773 ==
LOC: YASAS 19:54 → Y3N 07-09 03:25
PROVIDERS: ADMIT Allergy & Immunology; ATTEND Surgery
PROC: HZ2ZZZZ Detoxification Services for Substance Abuse Treatment (ICD-10-PCS; principal; 2022-07-09)
DX: F11.23 Opioid dependence with withdrawal (principal); F14.20 Cocaine dependence, uncomplicated; F12.20 Cannabis dependence, uncomplicated; F17.210 Nicotine dependence, cigarettes, uncomplicated; Z28.310 Unvaccinated for COVID-19; Z28.9 Immunization not carried out for unspecified reason; Z86.69 Personal history of other diseases of the nervous system and sense organs; Z56.0 Unemployment, unspecified; Z59.00 Homelessness unspecified; Z88.8 Allergy status to other drugs, medicaments and biological substances
CPT/HCPCS: 36415; 80053; 85027; 86780; C9803-CS; U0003; U0005

== ENCOUNTER 2022-08-10 14:05 | Inpatient (IN) | payer OTHER ==
[2022-08-10 15:16] VITALS: BMI 22.8
[2022-08-10] MEDS ORDERED: BENZONATATE 200 MG CAPSULE PO PRN (18:02)
[2022-08-10] MEDS ORDERED: ONDANSETRON *ODT* 4 MG TABLET SL PRN (18:02)
[2022-08-10] MEDS ORDERED: DICYCLOMINE HCL 10 MG CAPSULE PO PRN (18:02)
[2022-08-10] MEDS ORDERED: methaDONE HCL 10 MG TABLET (FOR DETOX USE ONLY) PO ONE (18:02)
[2022-08-10] MEDS ORDERED: NALOXONE HCL 0.4 MG/ML VIAL IM PRN (18:02)
[2022-08-10] MEDS ORDERED: MAG HYDROX/AL HYDROX/SIMETH 30 ML UNIT-DOSE CUP PO PRN (18:02)
[2022-08-10] MEDS ORDERED: POLYETHYLENE GLYCOL (HEALTHYLAX) 3350 17 GM PACKET PO PRN (18:02)
[2022-08-10] MEDS ORDERED: cloNIDine HCL 0.1 MG TABLET PO PRN (18:02)
[2022-08-10] MEDS ORDERED: NALOXONE HCL (KLOXXADO) 8 MG SPRAY NS PRN (18:02)
[2022-08-10] MEDS ORDERED: MAGNESIUM HYDROX 2400MG/30ML ORAL SUSPENSION 30 ML CUP PO PRN (18:02)
[2022-08-10] MEDS ORDERED: BENZOCAINE/MENTHOL (CHLORASEPTIC ) LOZENGE MM PRN (18:02)
[2022-08-10] MEDS ORDERED: LOPERAMIDE HCL 2 MG CAPSULE PO PRN (18:02)
[2022-08-10] MEDS ORDERED: guaiFENesin 600 MG TABLET.ER (FP) PO PRN (18:02)
[2022-08-10] MEDS ORDERED: ACETAMINOPHEN 325 MG TABLET (FP) PO PRN (18:02)
[2022-08-10] MEDS ORDERED: methaDONE HCL 10 MG TABLET (FOR DETOX USE ONLY) ONE (18:37)
[2022-08-10] MEDS: diazePAM 5 MG TABLET PO PRN (19:21)
[2022-08-10] MEDS: THIAMINE HCL 100 MG TABLET (FP) PO SCH (23:04)
[2022-08-10] MEDS: MELATONIN 5 MG TABLETS PO SCH (23:04)
[2022-08-11] MEDS: PRENATAL VITAMINS W/ FOLIC ACID TABLET (FP) PO SCH (10:20)
[2022-08-11] MEDS: diazePAM 5 MG TABLET PO PRN ×2 (10:21→16:59)
[2022-08-11] MEDS ORDERED: ACETAMINOPHEN 325 MG TABLET (FP) PO ONE (11:44)
[2022-08-11] MEDS ORDERED: ONDANSETRON *ODT* 4 MG TABLET SL ONE (11:44)
[2022-08-11 13:28] LABS: HEMATOCRIT 40.2 % (35.4-49); HEMOGLOBIN 13.7 GM/dL (11.7-16.9); MCH 28.5 pg (25.7-33.7); MCHC 34.2 g/dl (32.0-35.9); MEAN CELL VOLUME 83.5 fl (80-96); MEAN PLT VOLUME 9.7 fl (7.5-11.1); PLATELET COUNT 367 10^3/uL (134-434); RBC 4.82 M/mm3 (4.00-5.60); RDW 13.8 % (11.9-15.9); WHITE BLOOD COUNT 12.5 K/mm3 (4.0-10.0)
[2022-08-11 15:40] LABS: ALBUMIN 3.4 g/dl (3.4-5.0); BILIRUBIN,TOTAL 0.7 mg/dL (0.2-1); CALCIUM 9.2 mg/dL (8.5-10.1); CREATININE 0.8 mg/dL (0.55-1.3); POTASSIUM 4.7 mmol/L (3.5-5.1)
[2022-08-11] MEDS: MELATONIN 5 MG TABLETS PO SCH (22:19)
[2022-08-11] MEDS: METHOCARBAMOL 500 MG TABLET PO PRN (22:19)
[2022-08-11] MEDS: THIAMINE HCL 100 MG TABLET (FP) PO SCH (22:19)
[2022-08-11] MEDS: hydrOXYzine PAMOATE 25 MG CAPSULE (FP) PO PRN (22:19)
[2022-08-12] MEDS: diazePAM 5 MG TABLET PO PRN ×4 (01:49→22:12)
[2022-08-12] MEDS ORDERED: methaDONE HCL 10 MG TABLET (FOR DETOX USE ONLY) PO ONE (10:00)
[2022-08-12] MEDS: PRENATAL VITAMINS W/ FOLIC ACID TABLET (FP) PO SCH (10:20)
[2022-08-12] MEDS: NICOTINE 10 MG CARTRIDGE (INHALER) IH PRN ×3 (11:20→21:24)
[2022-08-12] MEDS: THIAMINE HCL 100 MG TABLET (FP) PO SCH (22:12)
[2022-08-12] MEDS: MELATONIN 5 MG TABLETS PO SCH ×2 (22:12→22:17)
[2022-08-12] MEDS: hydrOXYzine PAMOATE 25 MG CAPSULE (FP) PO PRN (22:12)
[2022-08-12] MEDS: METHOCARBAMOL 500 MG TABLET PO PRN (22:14)
[2022-08-12] MEDS: CLINDAMYCIN HCL 150 MG CAPSULE (FP) PO SCH (22:17)
[2022-08-13] MEDS: NICOTINE 10 MG CARTRIDGE (INHALER) IH PRN ×3 (05:47→14:42)
[2022-08-13] MEDS: CLINDAMYCIN HCL 150 MG CAPSULE (FP) PO SCH ×2 (06:25→13:37)
[2022-08-13 09:53] VITALS: BP 114/64; PULSE 83; RESP 18; TEMP 97.6
[2022-08-13] MEDS: PRENATAL VITAMINS W/ FOLIC ACID TABLET (FP) PO SCH (10:08)
[2022-08-13] MEDS: diazePAM 5 MG TABLET PO PRN ×2 (11:45→17:46)
[2022-08-14] MEDS ORDERED: methaDONE HCL 10 MG TABLET (FOR DETOX USE ONLY) PO ONE (10:00)
== END 2022-08-13 18:47 | disposition left against medical advice (07) | DRG 770 ==
LOC: YASAS 14:05 → Y6N 19:01
PROVIDERS: ADMIT Allergy & Immunology; ATTEND Surgery
PROC: HZ2ZZZZ Detoxification Services for Substance Abuse Treatment (ICD-10-PCS; principal; 2022-08-10)
DX: F11.23 Opioid dependence with withdrawal (principal); F10.230 Alcohol dependence with withdrawal, uncomplicated; F17.210 Nicotine dependence, cigarettes, uncomplicated; T14.8XXA Other injury of unspecified body region, initial encounter; L08.9 Local infection of the skin and subcutaneous tissue, unspecified; X58.XXXA Exposure to other specified factors, initial encounter; Y92.239 Unspecified place in hospital as the place of occurrence of the external cause
CPT/HCPCS: 36415; 80053; 85027; 86780; 87635

== ENCOUNTER 2022-10-04 12:39 | Inpatient (IN) | payer OTHER ==
[2022-10-04 13:19] VITALS: BMI 22.3
[2022-10-04] MEDS ORDERED: MAG HYDROX/AL HYDROX/SIMETH 30 ML UNIT-DOSE CUP PO PRN (15:24)
[2022-10-04] MEDS ORDERED: BENZONATATE 200 MG CAPSULE PO PRN (15:24)
[2022-10-04] MEDS ORDERED: LOPERAMIDE HCL 2 MG CAPSULE PO PRN (15:24)
[2022-10-04] MEDS ORDERED: NALOXONE HCL 0.4 MG/ML VIAL IM PRN (15:24)
[2022-10-04] MEDS ORDERED: POLYETHYLENE GLYCOL (HEALTHYLAX) 3350 17 GM PACKET PO PRN (15:24)
[2022-10-04] MEDS ORDERED: DICYCLOMINE HCL 10 MG CAPSULE PO PRN (15:24)
[2022-10-04] MEDS ORDERED: ACETAMINOPHEN 325 MG TABLET (FP) PO PRN (15:24)
[2022-10-04] MEDS ORDERED: NALOXONE HCL (KLOXXADO) 8 MG SPRAY NS PRN (15:24)
[2022-10-04] MEDS ORDERED: ONDANSETRON *ODT* 4 MG TABLET SL PRN (15:24)
[2022-10-04] MEDS ORDERED: hydrOXYzine PAMOATE 25 MG CAPSULE (FP) PO PRN (15:24)
[2022-10-04] MEDS ORDERED: guaiFENesin 600 MG TABLET.ER (FP) PO PRN (15:24)
[2022-10-04] MEDS ORDERED: BENZOCAINE/MENTHOL (CHLORASEPTIC ) LOZENGE MM PRN (15:24)
[2022-10-04] MEDS ORDERED: METHOCARBAMOL 500 MG TABLET PO PRN (15:24)
[2022-10-04] MEDS ORDERED: MAGNESIUM HYDROX 2400MG/30ML ORAL SUSPENSION 30 ML CUP PO PRN (15:24)
[2022-10-04] MEDS: MELATONIN 5 MG TABLETS PO SCH (22:34)
[2022-10-04] MEDS: THIAMINE HCL 100 MG TABLET (FP) PO SCH (22:34)
[2022-10-05] MEDS: PRENATAL VITAMINS W/ FOLIC ACID TABLET (FP) PO SCH (10:13)
[2022-10-05] MEDS ORDERED: cloNIDine HCL 0.1 MG TABLET PO PRN (10:15)
[2022-10-05] MEDS: methaDONE HCL 10 MG TABLET (FOR DETOX USE ONLY) PO ONE ×2 (11:07→13:15)
[2022-10-05 11:12] LABS: HEMATOCRIT 43.1 % (35.4-49); HEMOGLOBIN 14.8 GM/dL (11.7-16.9); MCHC 34.3 g/dl (32.0-35.9); MEAN CELL VOLUME 84.5 fl (80-96); MEAN PLT VOLUME 10.4 fl (7.5-11.1); PLATELET COUNT 192 10^3/uL (134-434); RDW 15.3 % (11.9-15.9); WHITE BLOOD COUNT 6.9 K/mm3 (4.0-10.0)
[2022-10-05 11:14] LABS: POTASSIUM 4.4 mmol/L (3.5-5.1)
[2022-10-05 11:19] LABS: CALCIUM 9.3 mg/dL (8.5-10.1)
[2022-10-05 11:20] LABS: ALBUMIN 3.9 g/dl (3.4-5.0); BLOOD UREA NITROGEN 8.2 mg/dL (7-18)
[2022-10-05 11:22] LABS: CREATININE 0.7 mg/dL (0.55-1.3)
[2022-10-05 11:24] LABS: BILIRUBIN,TOTAL 0.7 mg/dL (0.2-1); TOT PROT 7.5 g/dl (6.4-8.2)
[2022-10-05] MEDS: diazePAM 5 MG TABLET PO PRN ×2 (13:16→21:33)
[2022-10-05] MEDS: MELATONIN 5 MG TABLETS PO SCH (21:32)
[2022-10-05] MEDS: THIAMINE HCL 100 MG TABLET (FP) PO SCH (21:59)
[2022-10-06 09:24] VITALS: BP 126/79; PULSE 94; RESP 18; TEMP 97.8
[2022-10-06] MEDS: PRENATAL VITAMINS W/ FOLIC ACID TABLET (FP) PO SCH (10:08)
[2022-10-06] MEDS: diazePAM 5 MG TABLET PO PRN (10:09)
[2022-10-07] MEDS ORDERED: methaDONE HCL 10 MG TABLET (FOR DETOX USE ONLY) PO ONE (10:00)
[2022-10-09] MEDS ORDERED: methaDONE HCL 10 MG TABLET (FOR DETOX USE ONLY) PO ONE (10:00)
== END 2022-10-06 11:34 | disposition left against medical advice (07) | DRG 770 ==
LOC: YASAS 12:39 → Y3N 16:32
PROVIDERS: ADMIT Allergy & Immunology; ATTEND Allergy & Immunology
PROC: HZ2ZZZZ Detoxification Services for Substance Abuse Treatment (ICD-10-PCS; principal; 2022-10-04)
DX: F11.23 Opioid dependence with withdrawal (principal); F10.230 Alcohol dependence with withdrawal, uncomplicated; F17.210 Nicotine dependence, cigarettes, uncomplicated; Z28.310 Unvaccinated for COVID-19; Z88.6 Allergy status to analgesic agent; Z88.8 Allergy status to other drugs, medicaments and biological substances
CPT/HCPCS: 36415; 80053; 85027; 86780; 87635; 87811

== ENCOUNTER 2023-10-19 08:15 | Inpatient (IN) | payer OTHER ==
[2023-10-19 09:13] VITALS: BMI 23.0
[2023-10-19] MEDS ORDERED: MAG HYDROX/AL HYDROX/SIMETH 30 ML UNIT-DOSE CUP PO PRN (09:53)
[2023-10-19] MEDS ORDERED: BENZONATATE 200 MG CAPSULE PO PRN (09:53)
[2023-10-19] MEDS ORDERED: IBUPROFEN 600 MG TABLET (FP) PO PRN (09:53)
[2023-10-19] MEDS ORDERED: BENZOCAINE/MENTHOL (CHLORASEPTIC ) LOZENGE MM PRN (09:53)
[2023-10-19] MEDS ORDERED: NALOXONE HCL 0.4 MG/ML VIAL IM PRN (09:53)
[2023-10-19] MEDS ORDERED: LOPERAMIDE HCL 2 MG CAPSULE PO PRN (09:53)
[2023-10-19] MEDS ORDERED: ONDANSETRON *ODT* 4 MG TABLET SL PRN (09:53)
[2023-10-19] MEDS ORDERED: IBUPROFEN 400 MG TABLET (FP) PO PRN (09:53)
[2023-10-19] MEDS ORDERED: NALOXONE (NARCAN) HCL 4 MG/0.1 ML SPRAY NS PRN (09:53)
[2023-10-19] MEDS ORDERED: BISMUTH SUBSALICYLATE 524 MG/30 ML PO PRN (09:53)
[2023-10-19] MEDS ORDERED: guaiFENesin 600 MG TABLET.ER (FP) PO PRN (09:53)
[2023-10-19] MEDS ORDERED: NICOTINE 14 MG/24 HOURS TOPICAL PATCH TD ONE (10:14)
[2023-10-19] MEDS ORDERED: PRENATAL VITAMINS W/ FOLIC ACID TABLET (FP) PO ONE (10:15)
[2023-10-19] MEDS: NICOTINE 14 MG/24 HOURS TOPICAL PATCH TD SCH (10:20)
[2023-10-19] MEDS: PRENATAL VITAMINS W/ FOLIC ACID TABLET (FP) PO SCH (10:20)
[2023-10-19] MEDS: methaDONE HCL 40 MG DISPERSABLE TABLET PO SCH (11:14)
[2023-10-19] MEDS: diazePAM 5 MG TABLET PO SCH (17:07)
[2023-10-19] MEDS: THIAMINE 100 MG TABLET PO SCH (22:29)
[2023-10-19] MEDS: MELATONIN 5 MG TABLETS PO SCH (22:30)
[2023-10-20] MEDS: NICOTINE POLACRILEX 2 MG GUM BUC PRN (06:37)
[2023-10-20 11:11] LABS: POTASSIUM 4.3 mmol/L (3.5-5.1)
[2023-10-20 11:16] LABS: ALBUMIN 4.3 g/dl (3.4-5.0); BLOOD UREA NITROGEN 21.9 mg/dL (7-18); CALCIUM 9.6 mg/dL (8.5-10.1)
[2023-10-20 11:18] LABS: HEMATOCRIT 41.8 % (35.4-49); HEMOGLOBIN 14.5 GM/dL (11.7-16.9); MCHC 34.6 g/dl (32.0-35.9); MEAN CELL VOLUME 86.6 fl (80-96); MEAN PLT VOLUME 11.1 fl (7.5-11.1); PLATELET COUNT 199 10^3/uL (134-434); RBC 4.82 M/mm3 (4.00-5.60); RDW 13.4 % (11.9-15.9)
[2023-10-20 11:21] LABS: BILIRUBIN,TOTAL 0.7 mg/dL (0.2-1); TOT PROT 7.6 g/dl (6.4-8.2)
[2023-10-20] MEDS: BACITRACIN 0.9 GM PACKET TP SCH (11:57)
[2023-10-20] MEDS: diazePAM 5 MG TABLET PO PRN (13:58)
[2023-10-20] MEDS: DICYCLOMINE HCL 10 MG CAPSULE PO PRN (15:43)
[2023-10-20] MEDS: MAGNESIUM HYDROX 2400MG/30ML ORAL SUSPENSION 30 ML CUP PO PRN (21:08)
[2023-10-21] MEDS: diazePAM 5 MG TABLET PO SCH (05:57)
[2023-10-21] MEDS: methaDONE HCL 10 MG TABLET PO ONE (12:06)
[2023-10-21] MEDS: POLYETHYLENE GLYCOL (HEALTHYLAX) 3350 17 GM PACKET PO PRN (13:29)
[2023-10-22] MEDS: diazePAM 5 MG TABLET PO SCH (05:45)
[2023-10-22] MEDS ORDERED: methaDONE HCL 10 MG TABLET PO ONE (10:00)
[2023-10-22] MEDS: methaDONE HCL 10 MG TABLET PO ONE (10:20)
[2023-10-22] MEDS: methaDONE 80 MG, methaDONE 20 MG PO SCH (11:49)
[2023-10-22] MEDS: METHOCARBAMOL 500 MG TABLET PO PRN (16:58)
[2023-10-22] MEDS: hydrOXYzine PAMOATE 25 MG CAPSULE (FP) PO PRN (16:58)
[2023-10-23] MEDS: methaDONE 80 MG, methaDONE 20 MG PO SCH (05:39)
[2023-10-23] MEDS: diazePAM 5 MG TABLET PO ONE (05:39)
[2023-10-23] MEDS ORDERED: methaDONE HCL 10 MG TABLET PO SCH (06:00)
[2023-10-23] MEDS ORDERED: methaDONE HCL 10 MG TABLET PO ONE (10:00)
[2023-10-23] MEDS: hydrOXYzine PAMOATE 25 MG CAPSULE (FP) PO PRN (10:16)
[2023-10-23] MEDS: METHOCARBAMOL 500 MG TABLET PO PRN (20:57)
[2023-10-24] MEDS: methaDONE 80 MG, methaDONE 20 MG PO SCH (05:16)
[2023-10-24] MEDS: ACETAMINOPHEN 325 MG TABLET (FP) PO PRN (05:41)
[2023-10-24] MEDS ORDERED: methaDONE HCL 10 MG TABLET PO SCH (06:00)
[2023-10-24 09:27] VITALS: BP 111/60; PULSE 64; RESP 17; TEMP 98.6
[2023-10-24] MEDS ORDERED: methaDONE HCL 10 MG TABLET PO ONE (10:00)
== END 2023-10-24 09:39 | disposition home or self-care (01) | DRG 773 ==
LOC: YASAS 08:15 → Y6N 10:10 → Y3N 10-22 06:43
PROVIDERS: ADMIT Allergy & Immunology; ATTEND Surgery
PROC: HZ2ZZZZ Detoxification Services for Substance Abuse Treatment (ICD-10-PCS; principal; 2023-10-19)
DX: F11.23 Opioid dependence with withdrawal (principal); F10.230 Alcohol dependence with withdrawal, uncomplicated; F14.20 Cocaine dependence, uncomplicated; F12.20 Cannabis dependence, uncomplicated; F17.210 Nicotine dependence, cigarettes, uncomplicated; Z88.8 Allergy status to other drugs, medicaments and biological substances
CPT/HCPCS: 36415; 80053; 80305; 80307; 85027; 86780; 93005; 93010

== ENCOUNTER 2024-08-21 18:04 | Inpatient (IN) | payer OTHER ==
[2024-08-21 19:04] VITALS: BMI 21.7
[2024-08-21] MEDS ORDERED: POLYETHYLENE GLYCOL (HEALTHYLAX) 3350 17 GM PACKET PO PRN (20:26)
[2024-08-21] MEDS ORDERED: hydrOXYzine PAMOATE 25 MG CAPSULE (FP) PO PRN (20:26)
[2024-08-21] MEDS ORDERED: NICOTINE POLACRILEX 2 MG GUM BUC PRN (20:26)
[2024-08-21] MEDS ORDERED: guaiFENesin 600 MG TABLET.ER (FP) PO PRN (20:26)
[2024-08-21] MEDS ORDERED: NICOTINE POLACRILEX 2 MG LOZENGE BC PRN (20:26)
[2024-08-21] MEDS ORDERED: DICYCLOMINE HCL 10 MG CAPSULE PO PRN (20:26)
[2024-08-21] MEDS ORDERED: ONDANSETRON *ODT* 4 MG TABLET SL PRN (20:26)
[2024-08-21] MEDS ORDERED: NALOXONE (NARCAN) HCL 4 MG/0.1 ML SPRAY NS PRN (20:26)
[2024-08-21] MEDS ORDERED: BENZOCAINE/MENTHOL (CHLORASEPTIC ) LOZENGE MM PRN (20:26)
[2024-08-21] MEDS ORDERED: LOPERAMIDE HCL 2 MG CAPSULE PO PRN (20:26)
[2024-08-21] MEDS ORDERED: BENZONATATE 200 MG CAPSULE PO PRN (20:26)
[2024-08-21] MEDS ORDERED: MAG HYDROX/AL HYDROX/SIMETH 30 ML UNIT-DOSE CUP PO PRN (20:26)
[2024-08-21] MEDS ORDERED: MAGNESIUM HYDROX 2400MG/30ML ORAL SUSPENSION 30 ML CUP PO PRN (20:26)
[2024-08-21] MEDS ORDERED: MELATONIN 5 MG TABLETS ONE (23:41)
[2024-08-21] MEDS: THIAMINE 100 MG TABLET PO SCH (23:47)
[2024-08-22] MEDS: BACITRACIN 0.9 GM PACKET TP SCH ×2 (00:46→00:49)
[2024-08-22] MEDS: VITAMINS A AND D TOPICAL OINTMENT TP SCH (00:48)
[2024-08-22] MEDS: SULFAMETHOXAZOLE/TRIMETHOPRIM 800MG/160MG D.S. TABLET PO SCH ×2 (00:50)
[2024-08-22] MEDS: MELATONIN 5 MG TABLETS PO SCH (00:51)
[2024-08-22] MEDS ORDERED: methaDONE HCL 10 MG TABLET PO SCH (08:45)
[2024-08-22] MEDS: methaDONE 40 MG, methaDONE 30 MG PO SCH (09:02)
[2024-08-22] MEDS: diphenhydrAMINE HCL 25 MG CAPSULE (FP) PO ONE ×2 (10:54→10:58)
[2024-08-22] MEDS: diazePAM 5 MG TABLET PO SCH (10:58)
[2024-08-22] MEDS: PRENATAL VITAMINS W/ FOLIC ACID TABLET (FP) PO SCH (10:59)
[2024-08-22 11:39] LABS: HEMATOCRIT 35.6 % (40.1-51.0); HEMOGLOBIN 11.4 g/dL (13.7-17.5); MEAN PLT VOLUME 12.1 fl (9.4-12.4); PLATELET COUNT 233 x10^3/uL (163-337); RDW 12.8 % (11.9-15.3)
[2024-08-22 13:20] LABS: POTASSIUM 3.5 mmol/L (3.5-5.1)
[2024-08-22 13:27] LABS: ALBUMIN 3.1 g/dl (3.4-5.0); BLOOD UREA NITROGEN 6.8 mg/dL (7-18)
[2024-08-22 13:31] LABS: BILIRUBIN,TOTAL 0.3 mg/dL (0.2-1); CALCIUM 8.8 mg/dL (8.5-10.1); CREATININE 0.7 mg/dL (0.55-1.3)
[2024-08-22 13:32] LABS: TOT PROT 6.1 g/dl (6.4-8.2)
[2024-08-23] MEDS: diazePAM 5 MG TABLET PO PRN (08:28)
[2024-08-23] MEDS: METHOCARBAMOL 500 MG TABLET PO PRN (11:33)
[2024-08-23] MEDS: ACETAMINOPHEN 325 MG TABLET (FP) PO PRN (11:33)
[2024-08-24] MEDS: diazePAM 5 MG TABLET PO SCH (05:20)
[2024-08-24] MEDS: predniSONE 20 MG TABLET (UD) PO SCH (13:11)
[2024-08-25] MEDS: diazePAM 5 MG TABLET PO SCH (05:34)
[2024-08-25] MEDS ORDERED: hydrOXYzine PAMOATE 25 MG CAPSULE (FP) PO PRN (09:54)
[2024-08-25] MEDS: diazePAM 5 MG TABLET PO PRN (10:16)
[2024-08-25] MEDS: MUPIROCIN CA 2% TOPICAL CREAM 15 GM TUBE TP ONE (14:32)
[2024-08-25] MEDS: cloNIDine HCL 0.1 MG TABLET PO PRN (19:45)
[2024-08-25] MEDS ORDERED: MUPIROCIN CA 2% TOPICAL CREAM 15 GM TUBE TP SCH (22:00)
[2024-08-26] MEDS: diazePAM 5 MG TABLET PO ONE (05:22)
[2024-08-26 06:18] VITALS: BP 105/62; PULSE 64; RESP 18; TEMP 97.3
== END 2024-08-26 09:35 | disposition home or self-care (01) | DRG 773 ==
LOC: YASAS 18:04 → Y3N 23:30
PROVIDERS: ADMIT Allergy & Immunology; ATTEND Allergy & Immunology
PROC: HZ2ZZZZ Detoxification Services for Substance Abuse Treatment (ICD-10-PCS; principal; 2024-08-21)
DX: F10.230 Alcohol dependence with withdrawal, uncomplicated (principal); F13.230 Sedative, hypnotic or anxiolytic dependence with withdrawal, uncomplicated; F11.20 Opioid dependence, uncomplicated; F14.20 Cocaine dependence, uncomplicated; F17.210 Nicotine dependence, cigarettes, uncomplicated; F41.9 Anxiety disorder, unspecified; F32.A Depression, unspecified; L03.116 Cellulitis of left lower limb; Z88.8 Allergy status to other drugs, medicaments and biological substances
CPT/HCPCS: 36415; 80053; 80305; 80307; 85027; 86780; 93005; 93010